=== PATIENT | male | born 1960 | race Caucasian/White ===

== ENCOUNTER → 2017-06-18 | Outpatient (CLI) | payer OTHER ==
[~2017-06-18] MED LIST: REGADENOSON 0.4 MG/5 ML SYRINGE ONE
== END | disposition home or self-care (01) ==
LOC: RAD 07:16
PROVIDERS: ATTEND Internal Medicine Cardiovascular Disease
DX: R06.02 Shortness of breath (principal); R94.31 Abnormal electrocardiogram [ECG] [EKG]; I10 Essential (primary) hypertension
CPT/HCPCS: 93306; J2785

== ENCOUNTER 2017-07-05 06:42 | Day surgery (SDC) | payer OTHER ==
[~2017-07-05] VITALS: Ht 193 cm; Wt 131.8 kg
[2017-07-05] MEDS ORDERED: SODIUM CHLORIDE 0.9% 1,000 ML IV ONE ×2 (07:03→07:47)
[2017-07-05] MEDS ORDERED: LOSA1TAB25 PO (07:20)
[2017-07-05] MEDS ORDERED: OMEP20TA62 PO (07:20)
[2017-07-05] MEDS ORDERED: ATOR40TA PO (07:20)
[2017-07-05] MEDS ORDERED: METF500T4 PO (07:20)
[2017-07-05] MEDS ORDERED: DULA1.5P IJ (07:20)
[2017-07-05] MEDS ORDERED: ASPI-496 PO (07:20)
[2017-07-05] MEDS ORDERED: AMLO5TAB4 PO (07:20)
[2017-07-05] MEDS ORDERED: VARE1TAB20 PO (07:20)
[2017-07-05 07:26] VITALS: BP 104/76
[2017-07-05 08:05] LABS: ANION GAP 10 mmol/L (5-15); CALCIUM 9.5 mg/dL (8.5-10.1); CHLORIDE 106 mmol/L (98-107)
[2017-07-05 08:07] LABS: CREATININE 1.33 mg/dL (0.7-1.3)
[2017-07-05] MEDS ORDERED: MIDAZOLAM 1 MG/ML, 2ML ONE (08:45)
[2017-07-05] MEDS ORDERED: FENTANYL PF 100 MCG/2ML ONE ×2 (08:45→09:18)
[2017-07-05] MEDS ORDERED: LIDOCAINE 2%, 20ML ONE (08:45)
[2017-07-05] MEDS ORDERED: DIPHENHYDRAMINE 50 MG/ML, 1ML ONE (09:18)
[2017-07-05] MEDS ORDERED: SODIUM CHLORIDE 0.9% 1,000 ML IV SCH (09:53)
== END 2017-07-05 14:28 ==
LOC: CACL 06:42
PROVIDERS: ATTEND Internal Medicine Cardiovascular Disease
DX: I25.10 Atherosclerotic heart disease of native coronary artery without angina pectoris (principal); I10 Essential (primary) hypertension; E11.9 Type 2 diabetes mellitus without complications; E78.5 Hyperlipidemia, unspecified; E66.9 Obesity, unspecified; I71.2 Thoracic aortic aneurysm, without rupture; F17.210 Nicotine dependence, cigarettes, uncomplicated; Z79.82 Long term (current) use of aspirin
CPT/HCPCS: 36415; 80048; 93458; 99156; 99157; C1769; C1894; J1200; J2250; J3010; J3490; Q9967

== ENCOUNTER → 2018-01-18 | Outpatient (CLI) | payer OTHER ==
[~2018-01-18] MED LIST changes: +AMLO5TAB4 PO; +ASPI-496 PO; +ATOR40TA PO; +DULA1.5P IJ; +LOSA1TAB25 PO; +METF500T17 PO; +OMEP20TA62 PO; -REGADENOSON 0.4 MG/5 ML SYRINGE ONE; +VARE1TAB20 PO
== END | disposition home or self-care (01) ==
LOC: CVU 07:02
PROVIDERS: ATTEND Internal Medicine Cardiovascular Disease
DX: I11.9 Hypertensive heart disease without heart failure (principal); E11.9 Type 2 diabetes mellitus without complications; I71.2 Thoracic aortic aneurysm, without rupture
CPT/HCPCS: 0399T; 93306

== ENCOUNTER 2019-05-28 08:30 | Outpatient (CLI) | payer OTHER ==
[2019-05-28] MEDS ORDERED: OMNIPAQUE 350 MG/ML, 100ML BOTTLE ONE (15:31)
== END 2019-05-28 23:59 | disposition home or self-care (01) ==
LOC: CFH 08:30
PROVIDERS: ATTEND Internal Medicine Cardiovascular Disease
DX: M47.814 Spondylosis without myelopathy or radiculopathy, thoracic region (principal); R91.1 Solitary pulmonary nodule; I71.2 Thoracic aortic aneurysm, without rupture
CPT/HCPCS: 71275; 82565; Q9967

== ENCOUNTER → 2020-05-18 | Outpatient (CLI) | payer MEDICARE, BC | END | disposition home or self-care (01) | LOC: CVU 12:21 | PROVIDERS: ATTEND Internal Medicine Cardiovascular Disease | DX: I77.810 Thoracic aortic ectasia (principal) | CPT/HCPCS: 93306 ==